=== PATIENT | male | born 1975 | race Caucasian/White ===

== ENCOUNTER 2017-01-09 09:44 | Emergency (ER) | payer OTHER ==
[2017-01-09 09:47] VITALS: BP 145/83; BMI 30.2
--- NOTE | 2017-01-09 10:23 | RAD ---
Examination: Right wrist, three views History: Trauma Findings: No definite fracture, dislocation or other recent injury to the wrist, distal radius or uln a. Impression: No acute process demonstrated. Reported By:
--- NOTE | 2017-01-09 10:26 | DR.GENAD ---
HPI - PCP Primary Care Physician: DAY - Complaint/Symptoms Chief Complaint Doctors Comments: Patient admits to following of a 4 fan three days ago, continues to have pain with of the right wrist. Pain is 4/10, sharp, worse with motion, mild inn severity. Chief Complaint:: PT C/O RT WIRST PAIN. PT STATES HE FELL OFF OF A S4 FAN FRIDAY AND HE HAS BEEN HAVING PAIN IN IT. - Source History Provided: Patient - Mode of Arrival Mode of Arrival: Ambulatory - Timing Onset of Chief Complaint: 01/07/17 PMH - PMH Past Medical History: Yes Past Medical History: Hypertension Past Surgical History: Yes Surgical History: Other Past Surgical History Comment: BACK SURGERY - Family History History of Family Medical Conditions: Yes Family Medical History: Diabetes Mellitus, [place], Coronary Artery Disease, Hypertension - Social History Does any household member use tobacco: No Alcohol Use: None Do you use any recreational Drugs:: No Lives With: Family Lives Where: Home - infectious screening In the last 2 months have you had wt loss of >10#?: NO Have you had fever, night sweats or hemotysis?: No Have you traveled outside the country in the last 6 months?: No Isolation: Standard ROS - Review of Systems Eyes: No Symptoms Reported ENTM: No Symptoms Reported Respiratoy: No Symptoms Reported Cardiovascular: No Symptoms Reported Gastrointestinal/Abdominal: No Symptoms Reported Genitourinary: No Symptoms Reported Neurological: No Symptoms Reported Musculoskeletal: Other (right wrist) Integumentary: No Symptoms Reported Hematologic/Lymphatic: No Symptoms Reported Endocrine: No Symptoms Reported Psychiatric: No Symptoms Reported All Other Systems: Reviewed and Negative PE - Vital Signs Vitals: Temperature 98.1 F Pulse Rate 71 Respiratory Rate 20 Blood Pressure [Left Arm] 114/71 Blood Pressure 145/83 O2 Sat by Pulse Oximetry 97 - General Limitations: No Limitations General Appearance: Alert, In No Apparent Distress - Head Head Exam: Normal Inspection, Atraumatic - Eyes Eye exam: Normal Appearance, PERRL, EOMI - ENT ENT Exam: Normal Exam External Ear Exam: Normal External Inspection TM/Canal Exam: Bilateral Normal Nose Exam: Normal Nose Exam Mouth Exam: Normal Inspection Throat Exam: Normal Inspection - Neck Neck Exam: Normal Inspection, Full ROM - Chest Chest Inspection: Normal Inspection - Respiratory Respiratory Exam: Normal Lung Sounds Bilat Respiratory Exam: Bilateral Clear to Auscultation - Cardiovascular Cardiovascular Exam: Regular Rate, Normal Rhythm - Abdominal Exam Abdominal Exam: Normal Inspection Abdominal Tenderness: negative: RUQ, RLQ, LUQ, LLQ, Epigastrium, Suprapubic, Diffuse, Mild, Moderate, Severe, Other - Extremities Extremities Exam: Normal Inspection, Tenderness (right wrist) - Back Back Exam: Normal Inspection - Neurologic Neurological Exam: Alert, Oriented X3, CN II-XII Intact - Psychiatric Psychiatric Exam: Normal Affect, Normal Mood - Skin Skin Exam: Warm, Dry, Intact ROR - XRAY XRAY Interpreted by: Radiologist (Right wrist: no acute process identified) - Diagnosis Discharge Problem: Sprain of wrist, right Qualifiers: Encounter type: initial encounter Qualified Code(s): S63.501A - Unspecified sprain of right wrist, initial encounter - Discharge Plan Condition: Stable - Follow ups/Referrals Follow ups/Referrals: [facility] [Primary Care Provider] - 3 days - Instructions
== END 2017-01-09 10:50 | disposition home or self-care (01) ==
LOC: ER 09:53
DX: S63.501A Unspecified sprain of right wrist, initial encounter (principal); W19.XXXA Unspecified fall, initial encounter; Y92.9 Unspecified place or not applicable
CPT/HCPCS: 73100; 99282